=== PATIENT | male | born 1955 | race Caucasian/White ===

== ENCOUNTER 2018-03-20 05:28 | Day surgery (SDC) | payer OTHER ==
[~2018-03-20] VITALS: Ht 182.9 cm; Wt 85.7 kg
[~2018-03-20 05:28] MED LIST: LEVOCETIRIZINE D5 MG PO; LORA.5 PO; MOMENI; ZOLP10 PO
== END 2018-03-20 10:41 | disposition home or self-care (01) ==
LOC: ORSCSDS 05:28
PROVIDERS: Internal Medicine Gastroenterology
PROC: 0DBK8ZX Excision of Ascending Colon, Via Natural or Artificial Opening Endoscopic, Diagnostic (ICD-10-PCS; principal; 2018-03-20 10:15)
PROC: 0DBH8ZX Excision of Cecum, Via Natural or Artificial Opening Endoscopic, Diagnostic (ICD-10-PCS; principal; 2018-03-20 10:15)
DX: Z12.11 Encounter for screening for malignant neoplasm of colon (principal); D12.0 Benign neoplasm of cecum; D12.2 Benign neoplasm of ascending colon; K64.8 Other hemorrhoids; K57.30 Diverticulosis of large intestine without perforation or abscess without bleeding; Z86.010 Personal history of colon polyps; Z80.0 Family history of malignant neoplasm of digestive organs; Z79.899 Other long term (current) drug therapy
CPT/HCPCS: 88305; J1980; J7120

== ENCOUNTER 2021-05-26 09:51 | Day surgery (SDC) | payer MEDICARE ==
[~2021-05-26] VITALS: Ht 182.9 cm; Wt 87.1 kg
[2021-05-26] MEDS ORDERED: LOSA25 (10:07)
[2021-05-26] MEDS ORDERED: ATOR20 (10:07)
[2021-05-26] MEDS ORDERED: ZOLP10 (10:07)
[2021-05-26] MEDS ORDERED: ELIQUIS5 M2 (10:07)
--- NOTE | 2021-05-26 11:52 | NUR ---
05/26/21 [address] Marin LATE ENTRY DR. RODRIGUEZ WENT INTO SEE PATIENT AND PATIENT STATED THAT HE HAD A RECENT BLOOD CLOT AND WAS ON ELIQUIS WHICH HE TOOK THE EVENING OF 05/25/21. PATIENT DID NOT TELL NURSE HE WAS ON ELIQUIS AND MA ADMITTING PATIENT DID NOT LET NURSE KNOW THAT HE WAS ON ELIQUIS. DR. LEON SPOKE WITH PATIENT AND INFORMED PATIENT THAT THE CASE WOULD NEED TO BE CANCELLED DUE TO THE RISK OF BLEEDING. PATIENT VERBALIZED UNDERSTANDING. PATIENTS IV DC'D AND PATIENT WAS DISCHARGED HOME.
== END 2021-05-26 11:26 | disposition home or self-care (01) ==
LOC: ORSCSDS 09:51
DX: Z86.010 Personal history of colon polyps (principal); Z53.9 Procedure and treatment not carried out, unspecified reason
CPT/HCPCS: J2704; J7120

== ENCOUNTER → 2023-02-14 | Outpatient (CLI) | payer MEDICARE ==
[~2023-02-14] MED LIST changes: +ATOR20; +ELIQUIS5 M2; +LOSA25; +ZOLP10
[2023-02-14 18:30] LABS: SARS-Cov-2 (COVID-19) PCR, MMC POSITIVE (NEGATIVE)
== END | disposition home or self-care (01) ==
LOC: LAB 13:30 → LAB SHORT 13:30
PROVIDERS: Family Medicine
DX: U07.1 COVID-19 (principal); J02.8 Acute pharyngitis due to other specified organisms
CPT/HCPCS: U0002